=== PATIENT | female | born 1965 ===

== ENCOUNTER 2020-06-27 22:55 | Emergency (ER) | payer SELFPAY ==
[2020-06-27] MEDS ORDERED: PLEASE ENTER ALLERGIES MC SCH (23:30)
[2020-06-27] MEDS ORDERED: ONDANSETRON ODT 4 MG PO ONE (23:30)
[2020-06-27] MEDS ORDERED: LORazepam 1MG TABLET PO ONE (23:30)
[2020-06-27] MEDS ORDERED: SODIUM CHLORIDE FLUSH 10ML SYR IVF ONE (23:30)
== END 2020-06-27 23:26 ==
LOC: ED 23:20
DX: R68.89 Other general symptoms and signs (principal); R94.31 Abnormal electrocardiogram [ECG] [EKG]; Z53.21 Procedure and treatment not carried out due to patient leaving prior to being seen by health care provider
CPT/HCPCS: 93005